=== PATIENT | male | born 1945 | race Caucasian/White ===

== ENCOUNTER 2016-11-07 07:05 | Day surgery (SDC) | payer MEDICARE, OTHER ==
[~2016-11-07] VITALS: Ht 193 cm; Wt 95.0 kg
[~2016-11-07 07:05] MED LIST: LABE100T4 PO; Sodium Chloride LOK Flush 10 mL Syringe IV PRN; TAMS0.4C98 PO; fentaNYL-PF 50 mCg/mL 2 mL Inj IVPUSH PRN
[2016-11-07 07:41] VITALS: BP 142/99; PULSE 64; RESP 16; O2SAT 100
[2016-11-07] MEDS: 0.9% Sodium Chloride 1,000 ML ONE ×2 (08:02→08:12)
[2016-11-07 08:27] VITALS: BP 118/79; PULSE 55; RESP 12; O2SAT 98
--- NOTE | 2016-11-07 08:28 | PCM.ENDCOL ---
Colonoscopy Date of Service: Nov 07, 2016 Physician Kei Khoury MD Indication for Procedure Screening and personal history of polyps Post Procedure Dx & Findings: Polyp hemorrhoids and diverticula Procedure Colonoscopy Prep adequate Withdrawal 15 minutes PROCEDURE IN DETAIL: After uneventful rectal examination Olympus video colonoscope was inserted patient's anal canal was advanced to cecum. Landmarks are identified including the ileocecal valve and appendiceal orifice. Scope was withdrawn systematically. The mucosa of the cecum, ascending, transverse, descending, sigmoid, rectal mucosa lined with whitish, pink, smooth, glistening, normal-appearing mucosa, normal fine branching, underlying vascularity, normal haustra. The patient tolerated procedure and was transported to observation area. In the cecum there were two1 mm and 2 mm polyps. These were removed completely using cold snare. In the rectum there was a 1 mm polyp which was removed completely using cold forcep. In the sigmoid colon there a few small diverticuli. In the rectum retroflexion was done which showed hemorrhoids. Anal canal was inspected carefully and the way out and mild hemorrhoids noted. Impression Polyps 3 status post complete removal Hemorrhoids Diverticuli Personal history of colon polyps Recommendation Diverticular diet colonoscopy 3 years. Presedation Assessment Risks and Benefits Informed consent was obtained from the patient after all risks and benefits including but not limited to drug reaction, infection, pain, bleeding, perforation, as well as alternatives were discussed. Patient monitoring Continuous pulse oximetry, cardiac monitoring, blood pressure monitoring, IV access, and oxygen at 2L per nasal cannula. Periprocedural Fentanyl: Fentanyl 75mcg Incrementally Midazolam: Midazolam 3mg Incrementally Complications There were no periprocedural complications identified. Post Procedure Plan Post Procedure Recommendations 1. Restrict activities today. 2. Resume normal activities in the morning. 3. Resume medications. 4. Patient informed of normal post procedure side effects as bloating, drowsiness, blood streaking in the stool. 5. average risk CRCS. If colon polyps come back as: -Hyperplastic- can repeat colonoscopy in 10 years -Tubular adenoma- repeat colonoscopy in 5 years -Tubulovillous/villous adenoma- repeat colonoscopy in 3 years -If any dysplasia- return to clinic as soon as possible 6. Please don't hesitate to call me with any questions. Kei Khoury MD Nov 07, 2016 08:28
[2016-11-07 08:39] VITALS: BP 118/78; PULSE 66; RESP 12; O2SAT 99
[2016-11-07 08:42] VITALS: BP 137/89; PULSE 69; RESP 12; O2SAT 100
--- NOTE | 2016-11-11 10:08 | PATH ---
SURGICAL PATHOLOGY Attending Physician:Kei Khoury M.D. CASE STATUS: Signed Out PATIENT NAME: MARY KEE PID: [id number] : 1945 DATE COLLECTED:11/07/2016 20:48 SPECIMEN: 1: Colon, Biopsy 2: Rectum, Biopsy CLINICAL HISTORY: 1). CECAL POLYPS X2 2). RECTAL POLYP FINAL DIAGNOSIS: 1.CECAL POLYP: TUBULAR ADENOMA. 2.RECTAL POLYP: HYPERPLASTIC POLYP. ICD10 CODE D12.0 GROSS DESCRIPTION: The specimen is received in two formalin filled containers labeled with the patient's name. 1). The specimen is sublabeled "cecal polyps" and consists of a 0.5 x 0.3 x 0.2 CM portion of tissue which is entirely submitted in cassette 1A. 2). The specimen is sublabeled "rectal polyp" and consists of a 0.3 x 0.3 x 0.3 CM portion of tissue which is entirely submitted in cassette 2A. 11/07/2016 DAC MICRO DESCRIPTION: See diagnosis. ICD-9 CODES: CPT CODES: 1: 16291 2: 55736 Electronically Signed Out Fransisco Rodriguez MD [facility] [address], [place] [address] Technical component performed at [facility], [address] [place] [address] Ave[address], [place], [address]
== END 2016-11-07 23:59 | disposition home or self-care (01) ==
LOC: END 07:05
PROVIDERS: ATTEND Internal Medicine
DX: Z12.11 Encounter for screening for malignant neoplasm of colon (principal); Z86.010 Personal history of colon polyps; D12.0 Benign neoplasm of cecum; K62.1 Rectal polyp; K57.30 Diverticulosis of large intestine without perforation or abscess without bleeding; K64.9 Unspecified hemorrhoids; I10 Essential (primary) hypertension
CPT/HCPCS: 45380; 45385; 88305; 99153; G0500; J2250; J3010; J7030

== ENCOUNTER → 2017-06-08 | Day surgery (SDC) | payer MEDICARE, OTHER ==
[2017-06-08] VITALS (9 sets, daily range): BP systolic 93–147; BP diastolic 36–92; PULSE 55–87; RESP 12–20; O2SAT 97–100
[~2017-06-08] VITALS: Ht 193 cm; Wt 97.8 kg
[~2017-06-08] MED LIST changes: +Atropine 0.4 mg/mL Inj IVPUSH PRN; +Belladonna Alk-Opium 60 mg Rectal Suppository RECTAL ONE; +Dexamethasone 4 mg/mL Inj IVPUSH PRN; +EPHEDrine Sulfate 50 mg/mL Inj IVPUSH PRN; +Glycopyrrolate 0.2 MG/ML 1mL Inj ONE; +HYDROmorphone 1 mg/mL Inj IVPUSH PRN; +Labetalol 5 mg/mL 20 mL Inj IV PRN; +Lactated Ringer's 1,000 ML IV SCH; +Lactated Ringer's 500 ML IV PRN; +Levofloxacin 500 mg/100 mL D5W IV SCH; +Mitomycin Inj 40 MG in Syringe 1 EACH IRRIGATION ONE; +Neostigmine 1 mg/mL 10 mL Inj ONE; +Ondansetron 2 mg/mL 2 mL Inj IVPUSH PRN; +Ondansetron 2 mg/mL 2 mL Inj ONE; +Phenazopyridine 97.5 mg Tablet ONE; +Phenylephrine 10,000 mCg/mL Inj IVPUSH PRN; +Propofol 10,000 mCg/mL 20 mL Inj ONE; +Rocuronium 10 mg/mL 5 mL Inj ONE; -Sodium Chloride LOK Flush 10 mL Syringe IV PRN; +fentaNYL-PF 50 mCg/mL 2 mL Inj ONE; +hydrALAZINE 20 mg/mL Inj IVPUSH PRN; +oxyCODONE-Acetamin 5-325 mg Tablet PO ONE; +oxyCODONE-Acetamin 5-325 mg Tablet PO PRN
--- NOTE | 2017-06-08 07:06 | PCM.HPANE ---
Patient Data Surgeon Admitting Provider: Attending Provider:Ashutosh Warren MD Primary Care Physician:Gamaliel Eagle MD Other Provider: Reason for Visit Bladder Tumor Ht/WT & BMI Height (Feet): 6 Height (Inches): 4 Weight (Kilograms): 96.6 Body Mass Index 25.00 Allergies Coded Allergies: adhesive tape (Verified Allergy, Intermediate, Rash, 06/08/17) Past Anesthesia History Anesthesia History: Denies:: Abnormal Airway, Anesthesia Reactions, Difficult Intubation, Fam Anesthesia Reaction, Fam Malignant Hypertherm, Malignant Hyperthermia Diabetes History Hx Diabetes?: No MRSA MRSA: No Medications Hypertension Medication: Yes (Labetalol) Home Meds Incl Beta Jeff: Yes Reported Medications Tamsulosin (Flomax)0.4 Mg Capsule0.4 Mg PO QPM Ref 0 06/06/17 Labetalol 100 Mg [id number] Mg PO DAILY 06/06/17 Discontinued Reported Medications Tamsulosin (Flomax)0.4 Mg Capsule0.4 Mg PO DAILY Ref 0 11/04/16 Labetalol 100 Mg [id number] Mg PO DAILY 11/04/16 History History of ENT Problems?: No HEENT History: Positive for:: Sinus Problem (hay fever) Denies:: Abnormal Airway Difficult Intubation Dysphagia Hearing Problem TMJ Denture Type: None Teeth Condition: Within Normal Limits Hx of Heart Problems?: Yes Cardiovascular History: Positive for:: Hypertension Denies:: AICD Atrial Fibrillation Chest Pain Congestive Heart Failure Coronary Artery Disease Edema Pacemaker Rheumatic Fever Valvular Heart Disease Hx of Respiratory Problem?: No Respiratory History: Denies:: Asthma COPD Chest Surgery Cough Dyspnea Emphysema Hemoptysis Pneumonia Pulmonary Embolism Tuberculosis Use of C-PAP Machine Hx Neurologic Problems?: Yes Neurological History: Positive for:: Dizziness (lying back to fast) Denies:: Alzheimer's Disease CVA Dementia Headaches Multiple Sclerosis Parkinson's Disease Seizures TIA Hx of GI Problems?: Yes Hx of Problems?: No Male Hx: Positive for:: Prostate Problems (BPH) Scrotal Mass (Hydrocele) Denies:: Testicular Surgery Skin History: Denies:: History Skin Disorders? Pressure Ulcers Hx Musculoskeletal Problems?: No Musculoskeletal History: Denies:: Back Injury Degenerative Joint Fibromyalgia Joint Replacement Musculoskeletal Trauma Myasthenia Gravis Osteoarthritis Rheumatoid Arthritis Systemic Lupus Hx of Psycho/Social Problems?: No Psycho Social History: Denies:: Anxiety Hx Depression Hx Surgeries?: Yes (R NEPHRECTOMY, L SHOULDER X2) Hx Any Other Health Problems?: Yes Other History: Positive for:: Cancer (Renal Ca r kidney removed) Hospitalization (nephrectomy) Denies:: Endocrine Disease Thyroid Disease History Blood Transfusions: Positive for:: Accept Blood Products? Denies:: Blood Transfusions Hx Diabetes: No Hx Alcohol Use: Yes (SOME )Alcoholic Drinks Per Day: beer or two a weekHx Substance Use: Yes (smoke) Smoking Status: Former Smoker Stop/Bang S-Snoring: Do You Snore Loudly: No T-Tired: feel tired, fatigued: No O-Obsered: Observed not breath: No P-Blood Pressure: treated: Yes B- Body Mass Index > 35 kg/m2: No A- Age over 50: Yes N- Neck Large Circumference: Yes G- Gender Male: Yes SADI Total Score: 4 Risk Assessment Category Category 1A: Patient has history of documented sleep apnea, and HAS NOT received any narcotic, sedative or anesthesia administration during this stay. Category 1B: Patient has history of documented sleep apnea, and HAS received any narcotic , sedative or anesthesia administration during this stay Category 2: Patient has SUSPECTED Obstructive Sleep Apnea, and HAS received any narcotic , sedative or anesthesia administration during this stay. Category 3: Patient has SUSPECTED Obstructive Sleep Apnea and HAS NOT received narcotic, sedative or anesthesia administration during this stay. Category 4: Outpatient in Procedural Areas with known sleep apnea or who screen positive for High Risk via the STOP/BANG questionnaire. Exam Exam General Appearance: Alert, Oriented X3, Cooperative, No Acute Distress HEENT/AIRWAY: MP 2, Neck Movement (from), Mouth Opening (wnl) Lungs: Clear to Auscultation Heart: Exam Unremarkable Plan Impression Patient chart reviewed, patient interviewed and anesthestic plan with risks, benefits, and alternatives discussed, and informed consent obtained. ASA Physical Status: ASA2 Mod Systemic Disease Anesthetic Plan: GA Bene/Risks/Altern/Consents: Yes HP Complete Prior to Induction: Yes Db Nieves MD Jun 08, 2017 07:06
[2017-06-08] MEDS: Lactated Ringer's 1,000 ML IV SCH ×3 (12:22→16:36)
--- NOTE | 2017-06-08 17:57 | PCM.ANEP1 ---
Post Anesthesia PACU Phase 1 Assessment Vital Signs Vital Signs Date Time Temp Pulse Resp B/P Pulse Ox O2 Delivery O2 Flow Rate FiO2 06/08/17 12:19 36.6 59 16 132/89 97 Room Air Anesthetic Administered: GA Level of Alertness: Awake, talking MIRAMONTES's with Equal Strength: Yes Pain: No Nausea or Vomiting: No CV Function & Hydration Stable: Yes Airway Device: Oxygen Delivery: Room Air Lungs: Normal Air Movement PACU Phase 2 Assessment Complications: No Follow up Care: No Patient Instructions Provided: N/A Db Nieves MD Jun 08, 2017 17:57
--- NOTE | 2017-06-08 18:04 | PCM.SURGPO ---
Immediate Operative Note Date of Surgery: Jun 08, 2017 Pre Operative Diagnosis Bladder tumor Post Operative Diagnosis Bladder tumors, prostatic urethral lesion Procedure Cystoscopy, transurethral resection of bladder tumors (2-5cm), and prostatic urethral biopsy Surgeon and Breakfast And Room Attendant Surgeon: Ashutosh Warren MD Assistants: None Findings Cystoscopy revealed mild-moderate bilobar prostatic hypertrophy, several small edematous and frondish prostatic urethral lesions (on R lateral lobe), mildly trabeculated bladder, approx. 3-4cm papillary and sessile bladder tumor on L inferolateral wall, approx. 0.2-0.3cm papillary bladder tumor on R trigone ( just adjacent to R ureteral orifice), and B/L ureteral orifices in normal position. Bladder tumors were resected using bipolar loop electrocautery. Prostatic urethral lesions were resected using bipolar loop electrocautery. Of note, R ureteral stent was not needed to be placed, as patient is s/p R radical nephrectomy. L ureteral orifice was seen to be intact and well-preserved at the end of the case. Complications There were no periprocedural complications identified. Surgical Specimen Removed: Yes Specimen sent to Pathology: Yes Surgical Specimen description: R trigone bladder tumor, L inferolateral wall bladder tumor - superficial, L inferolateral wall bladder tumor - deep, Prostatic urethral lesions Anesthetic Administered: GA Grafts, Implants: Other (18F Gipson catheter to straight drainage) Output, Estimated Blood Loss: 10 Blood Admin during surgery: No Additional information Patient to return to see me in 1.5 weeks for post-op visit and trial of void. Ashutosh Warren MD Jun 08, 2017 18:04
--- NOTE | 2017-06-08 20:17 | PCM.DISURG ---
Surgical Discharge Instruction Date of Service Jun 08, 2017 Dates of Hospitalization Date of Hospital Admission Jun 08, 2017 Providers Admitting Physician: Ashutosh Warren MD Primary Care Physician: Gamaliel Eagle MD Attending Physician: Ashutosh Warren MD Discharge Diagnosis Discharge Diagnosis Bladder tumors, prostatic urethral lesion Post Operative diagnosis Bladder tumors, prostatic urethral lesion Diet Discharge Diet: No restrictions, Other (Drink at least 10-12 8oz. glasses (3 liters) of fluids as long as there is blood in the urine) Activity Discharge Activity-General: No driving while taking narcotic, Other (No strenuous exercise/activity or moderate or heavy lifting (>10 lbs.) for 1 week and as long as there is blood in the urine) Dressing and Incisional Care Hygiene: May shower Follow Up Plan Follow-up Provider (F9): Ashutosh Warren MD Follow-up appointment: Weeks (1.5 weeks for post-op visit and trial of void) Call your provider for: Fever, Chills, Vomiting, Other (Non-draining Gipson catheter, pain uncontrolled by pain medications) Ashutosh Warren MD Jun 08, 2017 20:17
--- NOTE | 2017-06-10 04:33 | OP ---
[address] [address] OPERATIVE REPORT PATIENT: MARY KEE : 1945 MR#: [id number] ADMIT: 06/08/2017 JOB ID: [id number] DATE OF SURGERY: 06/08/2017 PREOPERATIVE DIAGNOSIS(ES): Bladder tumor. POSTOPERATIVE DIAGNOSIS(ES): 1. Bladder tumors. 2. Prostatic urethral lesion. PROCEDURE: 1. Cystoscopy. 2. Transurethral resection of bladder tumors (2-5 cm). 3. Prostatic urethral biopsy. SURGEON: Ashutosh Warren MD. TASSEL MAKING MACHINE OPERATOR: None. ANESTHESIA: General. ESTIMATED BLOOD LOSS: 10 mL. SPECIMENS: Right trigone bladder tumor, left inferolateral wall bladder tumor-superficial, left inferolateral wall bladder tumor-deep, prostatic urethral lesions. DRAINS: 18-Gipson catheter, straight drainage. COMPLICATION: None. CONDITION: Stable. FINDINGS: Cystoscopy revealed mild to moderate bilobar prostatic hypertrophy, several small edematous and frondish prostatic urethral lesions (on the right lateral lobe), mildly trabeculated bladder, approximately 3-4 cm papillary and sessile bladder tumor on the left inferolateral wall, approximately 0.2-0.3 cm papillary bladder tumor on the right trigone (just adjacent to the right ureteral orifice) and bilateral ureteral orifices in normal position. Bladder tumors were resected using bipolar loop electrocautery. The prostatic urethral lesions were resected using bipolar loop electrocautery. Of note, right renal stent was not needed to be placed as the patient is status post right radical nephrectomy. Left ureteral orifice was seen to be intact and well- reserved at the end the case. INDICATIONS: The patient is a 71-year-old male found on office cystoscopy by Dr. Karla Douglas to have a bladder tumor on the left trigone. The patient now presents for cystoscopy, transurethral resection of bladder tumor, possible left ureteral stent placement and mitomycin intravesical instillation. DESCRIPTION OF PROCEDURE: The patient was brought to the operating room and placed supine on the operating room table. The patient was given Levaquin IV antibiotics. Sequential compression device boots were placed. General anesthesia was administered. The patient was brought down to dorsal lithotomy position. The patient was prepped and draped in standard surgical fashion. A 26-Ukrainian continuous flow resectoscope was placed into the distal urethra without difficulty. Cystoscopy revealed mild to moderate bilobar prostatic hypertrophy. Several small edematous and frondish prostatic urethral lesions (on the right lateral lobe), mildly trabeculated bladder, approximately 3-4 cm papillary and sessile bladder tumor on the left inferolateral wall, approximately 0.2-0.3 cm papillary bladder tumor on the right trigone (just adjacent to the right orifice) and bilateral ureteral orifices in normal position. Both bladder tumors were resected in their entirety using Thunderbeat bipolar loop electrocautery and sent to pathology for permanent specimen, the bases of the bladder tumor resected areas. Of note the left renal left inferolateral wall bladder tumor was noted to be away from the left ureteral orifice. The bases of the bladder tumor resected areas including normal surrounding bladder mucosa, were fulgurated using bipolar loop electrocautery. Excellent hemostasis was achieved. No evidence for bladder perforation was seen. Prostatic urethral lesions were resected using bipolar loop electrocautery and sent to pathology for permanent specimen. The base of the prostatic urethral biopsied area including normal surrounding prostatic urethral mucosa was fulgurated using bipolar loop electrocautery. Excellent hemostasis was achieved. Of note, right ureteral stent was not needed to be placed as the patient is status post right radical nephrectomy for kidney cancer in the past and left ureteral orifice was seen to be intact and well preserved at the end the case. Continuous flow resectoscope was removed from the patient. An 18-Ukrainian Gipson catheter was placed through the urethra into the bladder without difficulty. Gipson catheter balloon was inflated with 10 mL sterile water. Gipson catheter was placed to straight drainage. Skin was cleaned and dried. The patient placed in supine position. The patient was awakened from general anesthesia and transferred to the recovery room in stable condition. The patient tolerated the procedure well. PLAN: Plan is for the patient return to see me in the office in 1 1/2 weeks for postop visit and trial void.
--- NOTE | 2017-06-13 10:37 | PATH ---
SURGICAL PATHOLOGY Attending Physician:Ashutosh Warren MD CASE STATUS: Signed Out PATIENT NAME: MARY KEE PID: [id number] : 1945 DATE COLLECTED:06/08/2017 00:00 SPECIMEN: 1: Bladder, Biopsy 2: Bladder, Biopsy 3: Bladder, Biopsy 4: Urethra, Biopsy CLINICAL HISTORY: BLADDER TUMOR 1). RIGHT TRIGONE BLADDER TUMOR 2). LEFT SUPERFICIAL INFERIOR LATERAL BLADDER WALL TUMOR 3). LEFT DEEP INFERIOR LATERAL BLADDER WALL TUMOR 4). PROSTATIC URETHRAL LESION FINAL DIAGNOSIS: 1.RIGHT TRIGONE BLADDER TUMOR, TRANSURETHRAL RESECTION OF BLADDER TUMOR (TURBT): - FRAGMENT OF FIBROMUSCULAR TISSUE WITH DENUDEDED UROTHELIUM WITH THERMAL ARTIFACT. - NO EVIDENCE OF NEOPLASM. - ADDITIONAL DEEPER LEVELS EXAMINED. 2. & 3.LEFT SUPERFICIAL INFERIOR/ LATERAL BLADDER WALL TUMOR AND LEFT DEEP INFERIOR/ LATERAL BLADDER WALL TUMOR (PARTS 2 AND 3 RESPECTIVELY), TRANSURETHRAL RESECTION OF BLADDER TUMOR (TURBT): - PAPILLARY UROTHELIAL CARCINOMA, INVASIVE, HIGH-GRADE. - SEE CAP CANCER CASE SUMMARY BELOW. 4.PROSTATIC URETHRAL LESION, BIOPSY: - BENIGN PROSTATIC PARENCHYMA AND PROSTATIC URETHRA WITH NO EVIDENCE OF DYSPLASIA AND MALIGNANCY. - A FOCUS OF STROMAL HYPERPLASIA IS IDENTIFIED. - ADDITIONAL DEEPER LEVELS EXAMINED. CAP CANCER CASE SUMMARY Procedure: TRANSURETHRAL RESECTION OF BLADDER TUMOR. Tumor Site: Left superficial inferior /lateral bladder wall and left deep inferior/ lateral bladder wall (parts 2 and 3, respectively. Histologic Type: Papillary urothelial carcinoma, invasive. Histologic Grade: High-grade (Approximately 10% of the tumor has high grade cytology) Tumor Configuration: Papillary. Muscularis Propria Presence: Muscularis propria (detrusor muscle) present. Lymphovascular Invasion: Not identified. Microscopic Tumor Extension: Tumor focally invades lamina propria (subepithelial connective tissue). Pathologic Stage Classification (pTNM, AJCC 7th Edition): Primary Tumor (pT): pT1. Tumor invades lamina propria (subepithelial connective tissue). Regional Lymph Nodes (pN): pNX. ICD10 C67.9 NOTE: The majority of the papillary urothelial carcinoma in part 2 and 3 is low grade with approximately 10% of the tumor with high grade cytology, characterized by nuclear pleomorphism, architectural disarray and increased mitosis. As part of a routine quality internship, Drs. Velasquez and Dr. Bass have also reviewed clearance representative sections of the case and agree with the above interpretation. GROSS DESCRIPTION: The specimens are received in formalin, labeled with the patient's name, and sublabeled as the following: (1) right trigone bladder tumor; (2) left inferior/lateral wall bladder tumor-superficial; (3) left inferior/lateral wall bladder tumor-superficial; (4) prostatic urethral lesion. (1) The specimen consists of multiple fragments of crook-bledsoe rubbery semitranslucent glistening tissue (0.7 x 0.5 x 0.2 cm in aggregate). Section code: (1A) tissue. Specimen is entirely submitted. (2) The specimen consists of multiple fragments of bledsoe glistening semi-translucent friable tissue (3.5 g, 5.0 x 2.8 x 0.3 cm in aggregate). Section code: (2A-2C) tissue. Specimen entirely submitted. (3) The specimen consists of multiple fragments of bledsoe grossly and semitranslucent friable tissue (2.1 cm, 3.5 x 2.5 x 0.2 cm in aggregate). Section code: (3A, 3B) tissue. Specimen entirely submitted. (4) The specimen consists of a fragment of crook-white glistening semi-translucent rubbery tissue (0.7 x 0.6 x 0.2 cm). Section code: (4A) intact tissue. Specimen entirely submitted. Note: Per the requisition specimen #3 is left inferior/lateral wall bladder tumor-deep. 06/10/17 JM MICRO DESCRIPTION: See diagnosis. ICD-9 CODES: CPT CODES: 1: 77596 2: 86923 3: 29994 4: 71987 Electronically Signed Out Long Bonilla MD [facility] [address], [place] [address] Technical component performed at [facility], [facility] [address], [address]
== END | disposition home or self-care (01) ==
LOC: SAS 11:55
PROVIDERS: ATTEND Urology
DX: C67.2 Malignant neoplasm of lateral wall of bladder (principal); D29.1 Benign neoplasm of prostate; I10 Essential (primary) hypertension; Z90.5 Acquired absence of kidney; Z87.891 Personal history of nicotine dependence
CPT/HCPCS: 52240; 52601; 88305; J2250; J2405; J2704; J2710; J3010; J7120